=== PATIENT | female | born 1960 | race Caucasian/White ===

== ENCOUNTER 2017-05-08 11:22 | Outpatient (CLI) | payer OTHER ==
--- NOTE | 2017-05-08 13:50 | MMO ---
BILATERAL DIGITAL SCREENING MAMMOGRAMS: Date: 05/08/17 HISTORY: 56-year-old female presents for digital screening mammogram. COMPARISON: 04/05/16, 03/30/15, 10/18/13, 10/16/12, 08/19/11. FINDINGS: This patient's mammogram was interpreted with the assistance of computer-aided detection. Scattered areas of fibroglandular density noted bilaterally. There are stable typically benign calcif ications. No direct or indirect evidence of malignancy. IMPRESSION: BIRADS 2: Benign Finding(s) Continue routine screening. POS: [facility]
== END 2017-05-08 11:23 | disposition home or self-care (01) ==
LOC: MAMMO 11:22
PROVIDERS: ATTEND Obstetrics & Gynecology
DX: Z12.31 Encounter for screening mammogram for malignant neoplasm of breast (principal)
CPT/HCPCS: 77067; G0202

== ENCOUNTER 2018-05-30 13:12 | Outpatient (CLI) | payer OTHER | END 2018-05-30 13:13 | disposition home or self-care (01) | LOC: BICMAMMO 13:12 | PROVIDERS: ATTEND Obstetrics & Gynecology | DX: Z12.31 Encounter for screening mammogram for malignant neoplasm of breast (principal) | CPT/HCPCS: 77063; 77067 ==

== ENCOUNTER 2019-07-10 15:16 | Outpatient (CLI) | payer OTHER ==
--- NOTE | 2019-07-10 16:30 | MMO ---
Bilateral MAMMO Bilat Screen [facility]. CLINICAL HISTORY: Patient is 58 years old and is seen for screening. The patient has no family history of breast cancer. The patient has no personal history of cancer. VIEWS: The views performed were: bilateral craniocaudal with tomosynthesis and bilateral mediolateral oblique with tomosynthesis. FILMS COMPARED: The present examination has been compared to prior imaging studies performed at [facility] on 05/30/2018, and at [facility] on 03/30/2015, 05/06/2016 and 05/08/2017. This study has been interpreted with the assistance of computer-aided detection. MAMMOGRAM FINDINGS: There are scattered fibroglandular densities. There are stable benign appearing calcifications seen in both breasts. There are no suspicious masses, suspicious calcifications, or new areas of architectural distortion. IMPRESSION: THERE IS NO MAMMOGRAPHIC EVIDENCE OF MALIGNANCY. A ROUTINE FOLLOW-UP MAMMOGRAM IN 1 YEAR IS RECOMMENDED. THE RESULTS OF THIS EXAM WERE SENT TO THE PATIENT. ACR BI-RADS Category 2 - Benign finding MAMMOGRAPHY NOTE: 1. A negative mammogram report should not delay a biopsy if a dominant of clinically suspicious mass is present. 2. Approximately 10% to 15% of breast cancers are not detected by mammography. 3. Adenosis and dense breasts may obscure an underlying neoplasm. Reported by: TAVO SEPULVEDA MD Electonically Signed: [id number]
== END 2019-07-10 15:17 | disposition home or self-care (01) ==
LOC: BICMAMMO 15:16
PROVIDERS: ATTEND Internal Medicine
DX: Z12.31 Encounter for screening mammogram for malignant neoplasm of breast (principal)
CPT/HCPCS: 77063; 77067

== ENCOUNTER 2025-04-27 15:15 | Inpatient (IN) | payer BC ==
[~2025-04-27 15:15] MED LIST: Iopamidol-370 76% 500 ML MDV (1 ML CHARGE) ONE
[2025-04-27 16:15] LABS: Acetaminophen Less than 10 mcg/mL (Less than 10); Salicylate Less than 8.0 mg/dL (Less than 8.0)
[2025-04-27 16:29] LABS: ALT (SGPT) 23 U/L (Less than 34); AST (SGOT) 38 U/L (11-34); Albumin 4.2 g/dL (3.1-4.5); Alkaline Phosphatase 111 U/L (40-110); Anion Gap 19 mmol/L (10-20); BUN (Urea Nitrogen) 21 mg/dL (9.8-20.1); Bilirubin, Total 0.5 mg/dL (0.3-1.2); Calc. Creatinine Clearance 0 mL/min (70-130); Calcium 9.2 mg/dL (7.8-10.44); Carbon Dioxide 19 mmol/L (23-31); Chloride 104 mmol/L (98-107); Globulin 3.1 g/dL (2.4-3.5); Glucose 147 mg/dL (80-115); Potassium 4.3 mmol/L (3.5-5.1); Sodium 138 mmol/L (136-145)
[2025-04-27 16:43] LABS: Actual Bicarbonate (HCO3v) 22.2 mEq/L (22-28); Analyzer IN Cardio ER; Base Excess -2.0 mEq/L (-2.0 to +3.0); Calcium, Ionized (venous) 1.06 mmol/L (1.16-1.32); Chloride (VBG) 102 mmol/L (98-106); Hematocrit-VBG 39 % (36.0-47.0); Hemoglobin (Hb) 13.1 g/dL (11.7-16.0); Potassium (VBG) 3.84 mmol/L (3.70-5.30); Sodium 135 mmol/L (133-146)
[2025-04-27 16:52] LABS: #Basophils 0.04 10x3/uL (0.0-0.2); #Eosinophils 0.03 10x3/uL (0.0-0.7); #Monocytes 0.59 10x3/uL (0.11-0.59); #Neutrophils 7.15 10x3/uL (1.40-6.50); %Basophils 0.4 % (0.0-1.0); %Eosinophils 0.3 % (0.0-10.0); %Lymphocytes 15.3 % (21.0-51.0); %Monocytes 6.4 % (0.0-10.0); %Neutrophils 77.2 % (42.0-75.0); Hematocrit 36.1 % (36.0-47.0); Hemoglobin 11.9 g/dL (12.0-16.0); Mean Corpuscular Hemoglobin 29.8 pg (27.0-31.0); Mean Corpuscular Volume 90.3 fL (78.0-98.0); Platelet Count 231 10x3/uL (130-400); Red Blood Cell (RBC) Count 4.00 mill/uL (4.20-5.40); White Blood Cell (WBC) Count 9.27 10x3/uL (4.8-10.8)
[2025-04-27 17:27] LABS: Bacteria/HPF None Seen HPF (None Seen); CAUTI Indications for Culture Alt mental st,lethar; Glucose, Urine (Dipstick) Normal (Negative); Leukocyte Negative Leu/uL (Negative); Protein, Urine (Dipstick) Negative (Neg-Trace); RBC/HPF 0-3 HPF (0-3); Specific Gravity, Urine 1.049 (1.002-1.036); WBC/HPF 0-3 HPF (0-3)
[2025-04-27 17:28] LABS: Urine Culture Reflex No No
[2025-04-27] MEDS ORDERED: levETIRAcetam 500 MG (5 mL) VIAL ONE (17:33)
[2025-04-27 17:34] LABS: Cocaine Metabolite Screen Negative (Negative); THC/Cannabinoid Screen Negative (Negative); Tricyclic Screen Negative (Negative)
[2025-04-27] MEDS ORDERED: Ondansetron PF 4 MG/2 ML Vial IVP PRN (17:43)
[2025-04-27] MEDS ORDERED: Electrolyte Replacement Protocol 1 EACH FS SCH (17:45)
[2025-04-27] MEDS ORDERED: Potassium Chloride 20 MEQ in Premix 1 BAG IVPB PRN (18:00)
[2025-04-27] MEDS ORDERED: PHOS-NAK 1 PKT PACK PO PRN (18:00)
[2025-04-27] MEDS ORDERED: Magnesium 2 GM/50 ML(in water) 2 GM in Premix 1 BAG IVPB PRN (18:00)
[2025-04-27 18:53] VITALS: BMI 25.5
[2025-04-27] MEDS: Famotidine/PF 20 mg/2ml Vial SLOW IVP SCH (20:24)
[2025-04-27] MEDS ORDERED: levETIRAcetam 500 MG (5 mL) VIAL SLOW IVP SCH (21:00)
[2025-04-28 04:30] LABS: #Basophils Less than 0.03 10x3/uL (0.0-0.2); #Eosinophils 0.06 10x3/uL (0.0-0.7); #Monocytes 0.78 10x3/uL (0.11-0.59); #Neutrophils 6.26 10x3/uL (1.40-6.50); %Basophils 0.2 % (0.0-1.0); %Eosinophils 0.6 % (0.0-10.0); %Lymphocytes 24.0 % (21.0-51.0); %Monocytes 8.3 % (0.0-10.0); %Neutrophils 66.7 % (42.0-75.0); Hematocrit 37.0 % (36.0-47.0); Hemoglobin 12.1 g/dL (12.0-16.0); Mean Corpuscular Hemoglobin 29.6 pg (27.0-31.0); Mean Corpuscular Volume 90.5 fL (78.0-98.0); Platelet Count 222 10x3/uL (130-400); Red Blood Cell (RBC) Count 4.09 mill/uL (4.20-5.40); White Blood Cell (WBC) Count 9.39 10x3/uL (4.8-10.8)
[2025-04-28 04:49] LABS: ALT (SGPT) 17 U/L (Less than 34); AST (SGOT) 24 U/L (11-34); Albumin 3.4 g/dL (3.1-4.5); Alkaline Phosphatase 91 U/L (40-110); Anion Gap 11 mmol/L (10-20); BUN (Urea Nitrogen) 14 mg/dL (9.8-20.1); Bilirubin, Total 0.8 mg/dL (0.3-1.2); Calc. Creatinine Clearance 130 mL/min (70-130); Calcium 8.3 mg/dL (7.8-10.44); Carbon Dioxide 23 mmol/L (23-31); Chloride 110 mmol/L (98-107); Globulin 2.3 g/dL (2.4-3.5); Glucose 88 mg/dL (80-115); Potassium 3.7 mmol/L (3.5-5.1); Sodium 140 mmol/L (136-145)
[2025-04-28] MEDS: levETIRAcetam 500 MG (5 mL) VIAL SLOW IVP SCH (05:28)
[2025-04-28] MEDS: levETIRAcetam 500 MG TAB PO SCH (22:44)
[2025-04-29 03:40] LABS: #Basophils 0.04 10x3/uL (0.0-0.2); #Eosinophils 0.14 10x3/uL (0.0-0.7); #Monocytes 0.76 10x3/uL (0.11-0.59); #Neutrophils 3.33 10x3/uL (1.40-6.50); %Basophils 0.6 % (0.0-1.0); %Eosinophils 2.0 % (0.0-10.0); %Lymphocytes 39.5 % (21.0-51.0); %Monocytes 10.7 % (0.0-10.0); %Neutrophils 47.1 % (42.0-75.0); Hematocrit 36.5 % (36.0-47.0); Hemoglobin 11.5 g/dL (12.0-16.0); Mean Corpuscular Hemoglobin 29.2 pg (27.0-31.0); Mean Corpuscular Volume 92.6 fL (78.0-98.0); Platelet Count 225 10x3/uL (130-400); Red Blood Cell (RBC) Count 3.94 mill/uL (4.20-5.40); White Blood Cell (WBC) Count 7.08 10x3/uL (4.8-10.8)
[2025-04-29 04:12] LABS: ALT (SGPT) 16 U/L (Less than 34); AST (SGOT) 24 U/L (11-34); Albumin 3.2 g/dL (3.1-4.5); Alkaline Phosphatase 90 U/L (40-110); Anion Gap 10 mmol/L (10-20); BUN (Urea Nitrogen) 13 mg/dL (9.8-20.1); Bilirubin, Total 0.5 mg/dL (0.3-1.2); Calc. Creatinine Clearance 91 mL/min (70-130); Calcium 8.6 mg/dL (7.8-10.44); Carbon Dioxide 26 mmol/L (23-31); Chloride 107 mmol/L (98-107); Globulin 2.5 g/dL (2.4-3.5); Glucose 102 mg/dL (80-115); Potassium 4.2 mmol/L (3.5-5.1); Sodium 139 mmol/L (136-145)
[2025-04-29 08:27] VITALS: TEMP 97.4
[2025-04-29] MEDS ORDERED: Non-Formulary Item 1 EACH (Levothyroxine Sodium [Levothyroxine Sodium] 100 MCG Capsule) PO SCH (09:00)
[2025-04-29 11:45] VITALS: BP 160/80
[2025-05-01] MEDS ORDERED: FLU (Fluarix Triv) 25-26 (6MOS UP)/PF 45 MCG/0.5 ML Syringe IM ONE (09:00)
== END 2025-04-29 15:46 | disposition home or self-care (01) | DRG 101 ==
LOC: ERS 15:15 → 2SE 17:33
PROVIDERS: ADMIT Internal Medicine; ATTEND Internal Medicine
PROC: XX20X89 Monitoring of Brain Electrical Activity, Computer-aided Detection and Notification, New Technology Group 9 (ICD-10-PCS; principal; 2025-04-27)
PROC: 4A10X4Z Monitoring of Central Nervous Electrical Activity, External Approach (ICD-10-PCS; 2025-04-28)
DX: G40.801 Other epilepsy, not intractable, with status epilepticus (principal); E03.9 Hypothyroidism, unspecified; Z79.890 Hormone replacement therapy
CPT/HCPCS: 36415; 36416; 51701; 70450; 70551; 71045; 71275; 74174; 80053; 80306; 80307; 81001; 82805; 83605; 84146; 84443; 84484; 85025; 93005; 95816; 95819; 96361; 96365; 96375; J1308; J1953; J2060; J7030; Q9967